=== PATIENT | female | born 1965 | race African-American/Black ===

== ENCOUNTER 2019-12-09 17:15 | Emergency (ER) | payer MEDICAID ==
[~2019-12-09] VITALS: Ht 162.6 cm; Wt 100.0 kg
[2019-12-09 17:28] VITALS: BP 131/79
[2019-12-09] MEDS ORDERED: TRAZ150T78 PO (17:36)
[2019-12-09] MEDS ORDERED: BUSP15TA3 PO (17:36)
[2019-12-09] MEDS ORDERED: DULO60CA64 PO (17:36)
[2019-12-09] MEDS ORDERED: SPIR25TA6 PO (17:36)
[2019-12-09] MEDS ORDERED: QUET200T PO (17:36)
[2019-12-09] MEDS ORDERED: LOSA100T32 PO (17:36)
[2019-12-09] MEDS ORDERED: ASPI-1497 PO (17:36)
[2019-12-09] MEDS ORDERED: METO-385 PO (17:36)
[2019-12-09] MEDS ORDERED: ATOR40TA70 PO (17:36)
[2019-12-09] MEDS ORDERED: ASPIRIN 81MG TABLET PO ONE (18:00)
[2019-12-09 18:29] LABS: CHLORIDE 107 mEq/L (98-107)
[2019-12-09 18:36] LABS: BASOPHILS % 0.4 % (0.0-2.0); EOSINOPHILS % 3.4 % (0.0-5.0); HEMOGLOBIN. 12.3 g/dL (12.0-16.0); LYMPHOCYTES % 31.8 % (20.0-50.0); MEAN CORPUSCULAR HEMOGLOBIN 27.6 pg (28.0-32.0); MEAN CORPUSCULAR VOLUME 83.1 fL (81.0-99.0); MEAN PLATELET VOLUME 8.4 fl (7.4-10.4); MONOCYTES % 7.1 % (2.0-8.0); NEUTROPHILS % 57.3 % (40.0-76.0); PLATELET 313 x1000/uL (130-400); RED BLOOD CELL COUNT 4.45 mill/uL (4.2-5.4); RED CELL DISTRIBUTION WIDTH 15.1 % (11.6-14.6)
[2019-12-09 18:56] LABS: *AMPHETAMINES SCREEN URINE NEGATIVE (NEGATIVE); *BARBITURATES SCREEN URINE NEGATIVE (NEGATIVE); *BENZODIAZEPINES SCREEN URINE NEGATIVE (NEGATIVE); *COCAINE SCREEN URINE NEGATIVE (NEGATIVE); CANNABINOID URINE SCREEN NEGATIVE (NEGATIVE); OPIATES URINE SCREEN NEGATIVE (NEGATIVE); PHENCYCLIDINE URINE SCREEN NEGATIVE (NEGATIVE)
[2019-12-09 18:57] LABS: METHADONE URINE SCREEN NEGATIVE (NEGATIVE)
== END 2019-12-09 19:25 | disposition home or self-care (01) ==
LOC: ER 17:15
DX: I11.0 Hypertensive heart disease with heart failure (principal); I50.9 Heart failure, unspecified
CPT/HCPCS: 36415; 71045; 80053; 80305; 83880; 84484; 85025; 93005; 99285

== ENCOUNTER 2021-08-12 11:30 | Emergency (ER) | payer OTHER, MEDICAID ==
[~2021-08-12] VITALS: Ht 160 cm; Wt 102.0 kg
[~2021-08-12 11:30] MED LIST: ASPI-1497 PO; ATOR40TA70 PO; BUSP15TA3 PO; DULO60CA64 PO; LOSA100T32 PO; METO-385 PO; QUET200T PO; SPIR25TA6 PO; TRAZ150T78 PO
[2021-08-12 11:32] VITALS: BP 115/77
== END 2021-08-13 02:23 | disposition left against medical advice (07) ==
LOC: ER 11:46
DX: R53.83 Other fatigue (principal); I11.0 Hypertensive heart disease with heart failure; I50.9 Heart failure, unspecified; Z90.710 Acquired absence of both cervix and uterus; Z79.899 Other long term (current) drug therapy
CPT/HCPCS: 82962; 93005; 99283